=== PATIENT | female | born 1975 | race Caucasian/White ===

== ENCOUNTER 2023-11-13 01:41 | Emergency (ER) | payer MEDICAID ==
[~2023-11-13] VITALS: Ht 167.6 cm; Wt 113.0 kg
[2023-11-13 01:45] VITALS: O2SAT 100
[2023-11-13] MEDS: LORAZEPAM 2MG/ML INJ IM ONE (02:00)
[2023-11-13 02:26] LABS: *AMPHETAMINES SCREEN URINE NEGATIVE (NEGATIVE); *BARBITURATES SCREEN URINE NEGATIVE (NEGATIVE); *BENZODIAZEPINES SCREEN URINE NEGATIVE (NEGATIVE); *COCAINE SCREEN URINE NEGATIVE (NEGATIVE); CANNABINOID URINE SCREEN NEGATIVE (NEGATIVE); ECSTASY MDMA SCREEN URINE NEGATIVE (NEGATIVE); METHADONE URINE SCREEN Neg (NEGATIVE); OPIATES URINE SCREEN NEGATIVE (NEGATIVE); PHENCYCLIDINE URINE SCREEN NEGATIVE (NEGATIVE)
[2023-11-13 03:10] LABS: BASOPHILS % 0.9 % (0.0-2.0); EOSINOPHILS % 2.1 % (0.0-5.0); HEMATOCRIT. 37.9 % (36.0-48.0); HEMOGLOBIN. 12.7 g/dL (12.0-16.0); LYMPHOCYTES % 47.6 % (20.0-50.0); MEAN CORPUSCULAR HGB CONC 33.6 g/dL (31.0-37.0); MEAN CORPUSCULAR VOLUME 86.3 fL (81.0-99.0); MEAN PLATELET VOLUME 8.1 fl (7.4-10.4); MONOCYTES % 10.9 % (2.0-8.0); NEUTROPHILS % 38.5 % (40.0-76.0); PLATELET 314 x1000/uL (130-400); RED BLOOD CELL COUNT 4.39 mill/uL (4.2-5.4); RED CELL DISTRIBUTION WIDTH 14.9 % (11.6-14.6); WHITE BLOOD COUNT 4.6 x1000/uL (4.5-11.0)
[2023-11-13 03:41] LABS: HCG SCREEN NEGATIVE
[2023-11-13 03:44] LABS: ACETAMINOPHEN < 2 ug/mL (10-30); CARBON DIOXIDE 25 mEq/L (21-32); CHLORIDE 105 mEq/L (98-107); CREATININE 0.7 mg/dL (0.6-1.0); ETHANOL BLOOD < 10 mg/dL (<10); GLUCOSE 92 mg/dL (70-105); POTASSIUM 3.7 mEq/L (3.5-5.1); SODIUM 136 mEq/L (136-145); UREA NITROGEN BLOOD 11 mg/dL (9-23)
[2023-11-13 07:25] LABS: CALCIUM 9.3 mg/dL (8.7-10.4)
[2023-11-13] MEDS: HALOPERIDOL LACTATE 5MG/ML VIAL IM ONE (13:45)
[2023-11-13] MEDS: LORAZEPAM 2MG/ML INJ IM NR (14:45)
[2023-11-13] MEDS: ZIPRASIDONE MESYLATE 20MG/VIAL IM NR (15:30)
[2023-11-16 06:23] VITALS: TEMP 97.9
[2023-11-16 12:19] VITALS: BP 110/80; PULSE 95; RESP 15
== END 2023-11-16 12:20 | disposition home or self-care (01) ==
LOC: ER 02:07
DX: F41.9 Anxiety disorder, unspecified (principal); Z20.822 Contact with and (suspected) exposure to COVID-19
CPT/HCPCS: 80305; 80048; 80307; 80329; 80320; 84703; 85025; 36415; 96372; 99285; 87426; J1630; J3486; J2060; G0480